=== PATIENT | male | born 1985 | race Two or more races ===

== ENCOUNTER 2016-06-24 03:11 | Emergency (ER) | payer OTHER ==
[~2016-06-24] VITALS: Ht 170.2 cm; Wt 68.0 kg
[2016-06-24 03:25] VITALS: BP 107/70
== END 2016-06-24 08:53 | disposition home or self-care (01) ==
LOC: ER 03:20
DX: S46.912A Strain of unspecified muscle, fascia and tendon at shoulder and upper arm level, left arm, initial encounter (principal); X50.0XXA Overexertion from strenuous movement or load, initial encounter; Y93.89 Activity, other specified; Y99.0 Civilian activity done for income or pay; Y92.69 Other specified industrial and construction area as the place of occurrence of the external cause
CPT/HCPCS: 73030